=== PATIENT | male | born 1960 | race Caucasian/White ===

== ENCOUNTER 2016-12-04 10:00 | Inpatient (IN) ==
[2016-12-04] MEDS ORDERED: Albuterol 2.5 MG/3 ML NEBULIZER IH ONE ×2 (10:33→13:34)
[2016-12-04] MEDS ORDERED: Albuterol 2.5 MG/3 ML NEBULIZER ONE (10:35)
[2016-12-04] MEDS: Ringers Solution, Lactated 1,000 ML IVC SCH ×2 (10:37→17:00)
--- NOTE | 2016-12-04 12:06 | Anesthesia Evaluation PreOp ---
Date of Encounter: 12/04/16 Time of Encounter: 12:04 - Past History Planned Operation: ERCP/EUS Cardiac History: Denies any Significant Hx Pulmonary History: Smoker (1ppd x 35yrs) HAY STACKER History: Denies Any Significant HX Other Medical History: Denies Any Significant HX, GERD (Pancreatitis), Other ( dx w/ "belly mass" a long time ago no current treatments) Anesthesia History: No Prior Anesthetic Complications, Past Anesthesia ( umbilical hernia repaira x 2,) Alcohol Use: rarely Medications and Allergies Albuterol Sulfate [Ventolin Hfa] 2 puff IH Q4H PRN 12/04/16 [History] Oxycodone HCl/Acetaminophen [Percocet 5-325 mg Tablet] 1 tab PO Q6H PRN [History] 3 Allergy/AdvReac Type Severity Reaction Status Date / Time aspirin [ASA] Allergy Vomiting Verified 12/04/16 10:38 IVP Dye Allergy Vomiting Uncoded 12/04/16 10:27 - Meds/Allergy Pre-op Review Medications Reviewed: Yes Allergies Reviewed: Yes Beta Blockers on Current Med List: No Anesthesia Results - Labs Laboratory Tests 11/19/16 11/19/16 16:09 16:09 WBC 9.5 Hgb 14.4 Hct 40.9 Sodium 139 Potassium 3.9 Chloride 101 Carbon Dioxide 27 BUN 7 L Creatinine 0.76 Est GFR (Non-Af Amer) > 60 Anesthesia Exam O2 Sat Height 1.6 m Height 1.6 m Weight 63.957 kg Weight 63.957 kg O2 Sat by Pulse Oximetry 98 Vital Signs Temp Pulse Resp BP Pulse Ox 97.7 F 88 18 132/85 98 12/04/16 10:33 12/04/16 10:33 12/04/16 10:33 12/04/16 10:33 12/04/16 10:33 Height: 5'3" Weight: 141# BMI =25 NPO (# of Hours): MNOc Pain Scale Used: Numeric (1 - 10) - HEENT Pupil (Motor): Pupils equal, EOMI Mallampati: III Teeth: Edentulous Oral Opening: Greater than 3 - HAY STACKER LOC: Oriented HAY STACKER Motor: Normal RUE, Normal LUE, Normal RLE, Normal LLE, Normal Face HAY STACKER Sensory: Normal: RUE, LUE, RLE, LLE, Face - Cardiac Rhythm: Regular Murmur: None - Pulmonary Breath Sounds: bilateral Clear Respiratory Effort: Symmetrical Anesthesia Assess/Plan ASA Score: 3 Anes Supervising Prov Stmt: Pt seen/evaluated, R&B discussed ,questions answered and consent obtained. Narciso Campos MD
[2016-12-04] MEDS ORDERED: *HR* FentaNYL (PF) 100 MCG/2 ML VIAL ONE (12:22)
[2016-12-04] MEDS ORDERED: *HR* Midazolam HCl 2 MG/2 ML VIAL ONE (12:23)
[2016-12-04] MEDS ORDERED: Indomethacin 50 MG SUPP.RECT RC ONE (12:35)
[2016-12-04] MEDS ORDERED: Ondansetron 4 MG/2 ML VIAL IVP ONE ×2 (13:34→14:25)
[2016-12-04] MEDS ORDERED: *HR* Promethazine 25 MG/ML VIAL IVP PRN (13:34)
[2016-12-04] MEDS ORDERED: *HR* HYDROmorphone (PF) 1 MG/ML SYRINGE IVP PRN (13:34)
[2016-12-04 14:24] LABS: Basophils # 0.1 K/mcL (0.0-0.2); Basophils % 0.7 %; Eosinophils # 0.3 K/mcL (0.0-0.6); Eosinophils % 3.6 %; Hematocrit 40.6 % (37.5-50.1); Hemoglobin 13.7 g/dL (12.9-16.9); Immature Granulocytes % 0.4 % (0-4); Lymphocytes # 1.9 K/mcL (0.6-4.6); Lymphocytes % 19.9 %; Mean Corpuscular HGB Conc 33.7 g/dL (31.6-35.5); Mean Corpuscular Hemoglobin 33.3 pg (28.0-33.3); Mean Corpuscular Volume 98.8 fL (83.0-100.0); Mean Platelet Volume 10.4 fL (9.4-12.4); Monocytes # 0.7 K/mcL (0.0-1.3); Neutrophils # 6.5 K/mcL (1.6-8.9); Platelet Count 280 K/mcL (140-400); Red Blood Count 4.11 M/mcL (4.19-5.50); Red Cell Distribution Width 14.1 % (11.5-14.5); Segmented Neutrophils % 68.4 %
[2016-12-04] MEDS ORDERED: *HR* Phenylephrine 10 MG/ML VIAL IVC ONE (14:25)
[2016-12-04] MEDS ORDERED: *HR* Propofol 200 MG/20 ML VIAL IVP ONE (14:25)
[2016-12-04] MEDS ORDERED: *HR* Succinylcholine 200 MG/10 ML VIAL IVP ONE (14:25)
[2016-12-04] MEDS ORDERED: Lidocaine -MPF 2% 5 ML VIAL INFILT ONE (14:25)
[2016-12-04 14:30] LABS: INR 1.1; Prothrombin Time 12.4 Seconds (9.4-12.1)
[2016-12-04 14:37] LABS: Alanine Aminotransferase 112 Units/L (0-55); Albumin 2.7 g/dL (3.5-5.0); Albumin/Globulin Ratio 0.6 (1.1-2.2); Alkaline Phosphatase 1049 Units/L (38-126); Aspartate Amino Transferase 68 Units/L (5-34); BUN/Creatinine Ratio 9 (6-26); Bilirubin,Total 4.6 mg/dL (0.2-1.2); Blood Urea Nitrogen 7 mg/dL (8-26); Calcium 9.4 mg/dL (8.6-10.8); Carbon Dioxide 26 mEq/L (19-29); Chloride 103 mEq/L (98-109); Globulin 4.3 g/dL (2.4-3.5); Glucose 112 mg/dL (70-99); Osmolality,Calculated 285 (280-300); Potassium 3.8 mEq/L (3.5-4.5); Sodium 138 mEq/L (136-145); eGFR For African Americans > 60 (> 60); eGFR For Non-African Americans > 60 (> 60)
[2016-12-04] MEDS ORDERED: methylPREDNISolone 4 MG TABLET PO ONE (14:44)
--- NOTE | 2016-12-04 14:52 | Anesthesia Evaluation Post Op ---
Date of Encounter: 12/04/16 Time of Encounter: 14:42 - Vital Signs Vital Signs: Vital Signs/O2 Sat, Most Current Temp Pulse Resp BP Pulse Ox 99.0 F 74 16 127/85 94 12/04/16 14:42 12/04/16 14:42 12/04/16 14:42 12/04/16 14:42 12/04/16 14:42 - Lungs Lungs: Clear Ascult./Percussion - Airway Airway: Non-obstructed - Cardiovascular Regular Rate - Mental Status Mental Status: Alert & Oriented, Answers Appropriately - Pain Pain Scale: 0 Pain Scale used: Numeric (1 - 10) - Nausea Vomiting Nausea Vomiting: Not Present - Hydration Hydration: Ice chips, Has not voided - Discharge PostOp Status: Transfer Patient to floor
[2016-12-04] MEDS ORDERED: Ondansetron 4 MG/2 ML VIAL IVP PRN (15:46)
[2016-12-04] MEDS ORDERED: Naloxone 0.4 MG/ML INJ IVP PRN (15:46)
[2016-12-04] MEDS: Famotidine 20 MG/2 ML VIAL IVP SCH (16:44)
[2016-12-04] MEDS: *HR* Morphine 2 MG/ML SYRINGE IVP PRN ×2 (16:45→21:28)
--- NOTE | 2016-12-04 17:02 | Internal Med History&Physical ---
Date of Encounter: 12/04/16 Time of Encounter: 16:00 Assessment and Plan (1) Acute abdominal pain Current visit: Yes Status: Acute Admit the pt into Tele His abdominal pain is due to pancreatic mass will start him on IV and PO analgesics PRN Soft diet today NPO after mid night (2) Obstructive jaundice due to malignant neoplasm Current visit: Yes Status: Acute Reviewed his CT of Abd / Pelvis - Inferior pancreatic head/uncinate process there is a 5 cm mass lesion which abuts the second portion of the duodenum with loss of normal fascial planes. There is adjacent wall thickening with retroperitoneal fat induration and trace free fluid. There is some mildly enlarged adjacent lymph nodes. This is concerning for a primary pancreatic malignancy. Reviewed labs - Significantly elevated LFT's including alk phos CA 19 was also significantly elevated from beginning of this month IR consulted for Percutaneous drainage cath in AM Since he is allergic to contrast, they will prep him in AM with steroids NPO after mid night (3) Pancreatic mass Current visit: Yes Status: Acute (4) Asthma Current visit: Yes Status: Chronic stable not in exacerbation on Albuterol INH Qualifiers: Asthma severity: mild intermittent Qualified Code(s): J45.20 - Mild intermittent asthma, uncomplicated (5) Tobacco dependence Current visit: Yes Status: Chronic Counseled to quit smoking on nicotine patch (6) DVT prophylaxis Current visit: Yes Status: Acute on SCD's Internal Medicine - H&P: HPI Chief complaint: Abdominal pain Admitted From: Intrahospital Transfer Plans for Post Hospital Care: Home History of present illness: Mr. Montana is a 55 year old male with known PMH of Asthma, chronic tobacco dependence, who recently diagnosed with pancreatic mass and obstructive jaundice has scheduled for ERCP today. Apparently Dr. Ibarra unable to advance the scope/ canula due to mass. So GI requested me to admit the pt for further care for his worsening intractable abdominal pain, also possible Percutaneous cath by IR in AM. Pt was seen and examined at bed side on the floor. he is alert, awkae and O x3. Denied any CP / SOB. Does c/o RUQ and Periubelical abdominal pain 7/10 in severity. No nausea / vomiting. Past Med Surg Social Fam HX - Past Medical History Medical history: asthma, other (Pancreatic mass) Psychiatric history: no psych history - Past Surgical History Surgical History: no surgical history - Social History Smoking Status: Current every day smoker Packs per day: 1 Smokeless Tobacco Status: No Alcohol use: rarely Drug use: none - Family History Mother Living Status: Still Living Hx Family Cardiac Disorders: Yes Hx Family Endocrine Disorder: Yes (DM) - Additional Family History Additional family history: His borther and sister both have cancer, but does not know what cancer it is Internal Medicine - H&P: Meds Albuterol Sulfate [Ventolin Hfa] 2 puff IH Q4H PRN 12/04/16 [History] Oxycodone HCl/Acetaminophen [Percocet 5-325 mg Tablet] 1 tab PO Q6H PRN [History] 3 Allergy/AdvReac Type Severity Reaction Status Date / Time aspirin [ASA] Allergy Vomiting Verified 12/04/16 10:38 IVP Dye Allergy Vomiting Uncoded 12/04/16 10:27 All Systems PM: A 10-system review of systems was performed and is negative for pertinent findings except as documented above in the HPI. Review of systems: All the systems are reviewed everything is benign except the systems and symptoms I mentioned in the history of present illness - Constitutional Vitals: Temp Pulse Resp BP Pulse Ox 99.0 F 74 16 127/85 94 12/04/16 14:42 12/04/16 14:42 12/04/16 14:42 12/04/16 14:42 12/04/16 16:02 General appearance: Present: A&O X 3, no acute distress, answers questions appropriately - Head Head exam: Present: atraumatic, normal inspection - Eye Eye exam: Present: PERRL, scleral icterus - Respiratory Respiratory exam: Present: CTAB. Absent: accessory muscle use, rales, rhonchi, wheezes - Cardiovascular Cardiovascular exam: Present: RRR, +S1, +S2. Absent: diastolic murmur, gallop, rubs, systolic murmur - GI/Abdominal GI/Abdominal exam: Present: distended (mild), normal bowel sounds, soft, tenderness (moderate RUQ tenderness). Absent: rebound, rigid - Extremities Exam Extremities exam: Absent: calf tenderness, pedal edema, tenderness - Back Exam Back exam: Absent: CVA tenderness (L), CVA tenderness (R) - Neurological Exam Neurological exam: Present: alert, oriented X3 - Psychiatric Psychiatric exam: Present: normal affect, normal mood Internal Med - H&P Results - Labs CBC & Chem 7: 12/04/16 14:14 12/04/16 14:14 Labs: Short CBC 12/04/16 Range/Units 14:14 WBC 9.4 (4.3-11.1) K/mcL Hgb 13.7 (12.9-16.9) g/dL Hct 40.6 (37.5-50.1) % Plt Count 280 (140-400) K/mcL Neutrophils # 6.5 (1.6-8.9) K/mcL BMP 12/04/16 14:14 Sodium 138 Potassium 3.8 Chloride 103 Carbon Dioxide 26 BUN 7 L Creatinine 0.81 Glucose 112 H Calcium 9.4 Liver Function 12/04/16 Range/Units 14:14 Total Bilirubin 4.6 H (0.2-1.2) mg/dL AST 68 H (5-34) Units/L ALT 112 H (0-55) Units/L Alkaline Phosphatase 1049 H (38-126) Units/L Albumin 2.7 L (3.5-5.0) g/dL - Impressions ITS Impressions Cath/Invasive Procedure 12/04/16 00:00 IMPRESSION: Please refer to the procedure report for further details. D/ / Asad Rodriges MD / Asad Rodriges MD Interpreting Provider: Asad Rodriges MD Abdomen/Pelvis CT 12/04/16 14:12 IMPRESSION: 1. At the inferior pancreatic head/uncinate process there is a 5 cm mass lesion which abuts the second portion of the duodenum with loss of normal fascial planes. There is adjacent wall thickening with retroperitoneal fat induration and trace free fluid. There is some mildly enlarged adjacent lymph nodes. This is concerning for a primary pancreatic malignancy. There is possible infiltration of the duodenum though there is no obstruction. No evidence of vascular encasement on this noncontrasted exam. 2. Intra and extrahepatic biliary dilatation. 3. Mild gallbladder wall thickening. There is mild adjacent fat induration suggesting inflammation which could relate to acute cholecystitis versus reactive changes due to the primary pancreatic mass. The findings were sent to the Radiology Results Communication Center at 4:18 pm on 12/04/2016to be communicated to a licensed caregiver. D/ / 12/04/2016 16:25:58 Eliecer Lackey MD / Jess Martínez Interpreting Provider: Eliecer Lackey MD
[2016-12-04] MEDS: Nicotine 21 MG PATCH.TD24 TD SCH (18:18)
[2016-12-05] MEDS: *HR* Morphine 2 MG/ML SYRINGE IVP PRN ×4 (01:37→19:47)
[2016-12-05] MEDS: methylPREDNISolone 4 MG TABLET PO SCH ×2 (01:57→12:20)
[2016-12-05] MEDS ORDERED: methylPREDNISolone 4 MG TABLET PO SCH (02:00)
[2016-12-05] MEDS: *HR* Promethazine 25 MG/ML VIAL IVP PRN ×2 (02:07→15:01)
[2016-12-05] MEDS: *HR* OxyCODONE Immed Rel 5 MG TABLET PO PRN ×2 (02:07→17:20)
[2016-12-05] MEDS: Famotidine 20 MG/2 ML VIAL IVP SCH ×2 (06:08→17:20)
[2016-12-05 06:57] LABS: Basophils % 0.3 %; Hematocrit 39.6 % (37.5-50.1); Hemoglobin 13.6 g/dL (12.9-16.9); Immature Granulocytes % 0.7 % (0-4); Immature Platelets 7.7 % (1.1-6.1); Lymphocytes # 1.2 K/mcL (0.6-4.6); Lymphocytes % 11.2 %; Mean Corpuscular HGB Conc 34.3 g/dL (31.6-35.5); Mean Corpuscular Hemoglobin 33.7 pg (28.0-33.3); Mean Corpuscular Volume 98.3 fL (83.0-100.0); Mean Platelet Volume 10.7 fL (9.4-12.4); Monocytes # 0.3 K/mcL (0.0-1.3); Monocytes % 2.5 %; Neutrophils # 8.8 K/mcL (1.6-8.9); Platelet Count 292 K/mcL (140-400); Red Blood Count 4.03 M/mcL (4.19-5.50); Red Cell Distribution Width 13.9 % (11.5-14.5); Segmented Neutrophils % 85.3 %
[2016-12-05 07:01] LABS: INR 1.1; Prothrombin Time 12.1 Seconds (9.4-12.1)
[2016-12-05 07:03] LABS: Activated Partial Thrombo Time 32.4 Seconds (26.0-36.0)
[2016-12-05 07:15] LABS: BUN/Creatinine Ratio 15 (6-26); Blood Urea Nitrogen 11 mg/dL (8-26); Carbon Dioxide 24 mEq/L (19-29); Chloride 105 mEq/L (98-109); Potassium 4.1 mEq/L (3.5-4.5); Sodium 139 mEq/L (136-145); eGFR For African Americans > 60 (> 60)
[2016-12-05 07:16] LABS: Alanine Aminotransferase 85 Units/L (0-55); Albumin 2.7 g/dL (3.5-5.0); Albumin/Globulin Ratio 0.6 (1.1-2.2); Alkaline Phosphatase 946 Units/L (38-126); Aspartate Amino Transferase 41 Units/L (5-34); Bilirubin,Total 3.3 mg/dL (0.2-1.2); Calcium 9.7 mg/dL (8.6-10.8); Globulin 4.4 g/dL (2.4-3.5); Glucose 137 mg/dL (70-99); Magnesium 1.7 mg/dL (1.6-2.6); Osmolality,Calculated 290 (280-300); Phosphorous 2.6 mg/dL (2.3-4.7); Total Protein 7.1 g/dL (6.0-8.3); eGFR For Non-African Americans > 60 (> 60)
[2016-12-05] MEDS: Nicotine 21 MG PATCH.TD24 TD SCH ×2 (09:33→17:25)
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
[2016-12-05] MEDS ORDERED: 0.9 % Sodium Chloride 500 ML ONE (12:59)
[2016-12-05] MEDS ORDERED: Piperacillin/Tazobactam 3.375 GM in D5% in Water (Mini-Bag+) 100 ML IVPB ONE (13:19)
[2016-12-05] MEDS ORDERED: 0.9 % Sodium Chloride 1,000 ML ONE (13:22)
[2016-12-05] MEDS: *HR* FentaNYL (PF) 100 MCG/2 ML VIAL IVP PRN ×7 (13:52→14:34)
[2016-12-05] MEDS: *HR* Midazolam HCl 2 MG/2 ML VIAL IVP PRN ×4 (13:52→14:24)
--- NOTE | 2016-12-05 14:13 | Internal Med Progress Note ---
Date of Encounter: 12/05/16 Time of Encounter: 09:00 - Assessment and plan (1) Acute abdominal pain Current Visit: Yes Status: Acute Assessment and plan: Due to obstructive jaundice and pancreatic mass. Continue supportive care. Pain control with narcotic medications as needed. (2) Obstructive jaundice due to malignant neoplasm Current Visit: Yes Status: Acute Assessment and plan: Liver enzymes improving. Discussed with gastroenterology. Planned percutaneous cholecystostomy tube insertion today. (3) Pancreatic mass Current Visit: Yes Status: Acute Assessment and plan: Follow-up outpatient with oncology and GI for further management (4) Asthma Current Visit: Yes Status: Chronic Assessment and plan: Not in acute exacerbation. Will use bronchodilators as needed Qualifiers: Asthma severity: mild intermittent Qualified Code(s): J45.20 - Mild intermittent asthma, uncomplicated (5) Tobacco dependence Current Visit: Yes Status: Chronic Assessment and plan: On nicotine patch (6) DVT prophylaxis Current Visit: Yes Status: Acute Assessment and plan: Continue SCDs. Patient is ambulating well - Subjective Interval history: Patient doing better today. Abdominal pain is improving. Denies any nausea or vomiting. His been nothing by mouth for planned procedure later today. - Constitutional Vitals: Temp Pulse Resp BP Pulse Ox 98.4 F 89 16 152/100 98 12/05/16 11:02 12/05/16 14:08 12/05/16 14:08 12/05/16 14:08 12/05/16 14:08 General appearance: Present: A&O X 3, no acute distress, answers questions appropriately - Eye Eye exam: Present: sclera anicteric - Neck Neck exam general surgery: Present: supple, trachea midline. Absent: lymphadenopathy - Respiratory Respiratory exam: Present: CTAB. Absent: accessory muscle use, rales, rhonchi, wheezes - Cardiovascular Cardiovascular exam: Present: RRR, +S1, +S2. Absent: diastolic murmur, gallop, rubs, systolic murmur - GI/Abdominal GI/Abdominal exam: Present: normal bowel sounds, soft, no peritoneal signs. Absent: distended, tenderness - Extremities Exam Extremities exam: Present: warm, radial pulses palpable and symmetrical. Absent : calf tenderness, cyanotic, pedal edema - Neurological Exam Neurological exam: Present: CN II-XII intact, oriented X3, no focal deficits. Absent: facial droop, speech deficit - Skin Skin exam: Present: dry, intact Internal Medicine: Result - Labs CBC & Chem 7: 12/05/16 06:23 12/05/16 06:23 Labs: Short CBC 12/04/16 12/05/16 Range/Units 14:14 06:23 WBC 9.4 10.3 (4.3-11.1) K/mcL Hgb 13.7 13.6 (12.9-16.9) g/dL Hct 40.6 39.6 (37.5-50.1) % Plt Count 280 292 (140-400) K/mcL Neutrophils # 6.5 8.8 (1.6-8.9) K/mcL BMP 12/04/16 12/05/16 14:14 06:23 Sodium 138 139 Potassium 3.8 4.1 Chloride 103 105 Carbon Dioxide 26 24 BUN 7 L 11 Creatinine 0.81 0.72 Glucose 112 H 137 H Calcium 9.4 9.7 Liver Function 12/04/16 12/05/16 Range/Units 14:14 06:23 Total Bilirubin 4.6 H 3.3 H (0.2-1.2) mg/dL AST 68 H 41 H (5-34) Units/L ALT 112 H 85 H (0-55) Units/L Alkaline Phosphatase 1049 H 946 H (38-126) Units/L Albumin 2.7 L 2.7 L (3.5-5.0) g/dL - ABG Interpretation ABG results: PT/INR, D-dimer PT 12.1 Seconds (9.4-12.1) 12/05/16 06:23 - Impressions Impressions Abdomen/Pelvis CT 12/04/16 14:12 IMPRESSION: 1. At the inferior pancreatic head/uncinate process there is a 5 cm mass lesion which abuts the second portion of the duodenum with loss of normal fascial planes. There is adjacent wall thickening with retroperitoneal fat induration and trace free fluid. There is some mildly enlarged adjacent lymph nodes. This is concerning for a primary pancreatic malignancy. There is possible infiltration of the duodenum though there is no obstruction. No evidence of vascular encasement on this noncontrasted exam. 2. Intra and extrahepatic biliary dilatation. 3. Mild gallbladder wall thickening. There is mild adjacent fat induration suggesting inflammation which could relate to acute cholecystitis versus reactive changes due to the primary pancreatic mass. The findings were sent to the Radiology Results Communication Center at 4:18 pm on 12/04/2016to be communicated to a licensed caregiver. D/ / 12/04/2016 16:25:58 Eliecer Lackey MD / Jess Martínze Interpreting Provider: Eliecer Lackey MD Consult Discharge Plan - Plan Referrals: Alecia Espinoza, PETROLEUM PLANT OPERATOR [Primary Care Provider] -
--- NOTE | 2016-12-05 14:45 | IR Procedure Note ---
Date of procedure: 12/05/16 Consent Obtained: Written consent Timeout: Correct patient and procedure verified, Time out performed, Skin prep completed Local anesthetic: Lidocaine 1% Indications: Obstructive jaundice Procedure Performed: PTC/PBD Results/Findings: Right 12F int/ext biliary drainage catheter placement Complications: None; Tolerated procedure well (Monitor on floor)
[2016-12-05] MEDS: *HR* OxyCODONE/APAP 10/325 TABLET PO PRN (22:09)
[2016-12-06] MEDS: *HR* Morphine 2 MG/ML SYRINGE IVP PRN ×4 (00:21→23:56)
[2016-12-06] MEDS: Famotidine 20 MG/2 ML VIAL IVP SCH ×2 (06:10→18:04)
[2016-12-06] MEDS: *HR* OxyCODONE/APAP 10/325 TABLET PO PRN ×3 (06:10→20:45)
[2016-12-06 08:41] LABS: Albumin 2.7 g/dL (3.5-5.0); Albumin/Globulin Ratio 0.6 (1.1-2.2); Bilirubin,Direct 1.5 mg/dL (0.0-0.5); Bilirubin,Indirect 0.7 mg/dL (0.0-1.2); Bilirubin,Total 2.2 mg/dL (0.2-1.2); Globulin 4.3 g/dL (2.4-3.5)
[2016-12-06] MEDS: Nicotine 21 MG PATCH.TD24 TD SCH (08:53)
--- NOTE | 2016-12-06 16:00 | Internal Med Progress Note ---
Date of Encounter: 12/06/16 Time of Encounter: 11:00 - Assessment and plan (1) Acute abdominal pain Current Visit: Yes Status: Acute Assessment and plan: Due to pancreatic tumor and obstructive jaundice. Status post PTC placement. Doing well overall. Continue supportive care. Pain control. (2) Obstructive jaundice due to malignant neoplasm Current Visit: Yes Status: Acute Assessment and plan: Plan for repeat ERCP tomorrow per GI recommendations. Keep nothing by mouth after midnight. Liver enzymes trending down. (3) Pancreatic mass Current Visit: Yes Status: Acute Assessment and plan: Follow-up outpatient with GI and oncology. (4) Asthma Current Visit: Yes Status: Chronic Assessment and plan: Continue bronchodilators as needed Qualifiers: Asthma severity: mild intermittent Qualified Code(s): J45.20 - Mild intermittent asthma, uncomplicated (5) Tobacco dependence Current Visit: Yes Status: Chronic Assessment and plan: On nicotine patch. (6) DVT prophylaxis Current Visit: Yes Status: Acute Assessment and plan: early ambulation. Continue SCDs - Subjective Interval history: Patient complaints of abdominal discomfort at site of catheter insertion and in the epigastric region. This is a however better than the pain when he came in. No fever or chills reported. No nausea or vomiting. Tolerating diet well. - Constitutional Vitals: Temp Pulse Resp BP Pulse Ox 98.1 F 89 15 128/85 95 12/06/16 14:47 12/06/16 14:47 12/06/16 14:47 12/06/16 14:47 12/06/16 14:47 General appearance: Present: A&O X 3, no acute distress, answers questions appropriately - Neck Neck exam general surgery: Present: supple, trachea midline. Absent: lymphadenopathy - Respiratory Respiratory exam: Present: CTAB. Absent: accessory muscle use, rales, rhonchi, wheezes - Cardiovascular Cardiovascular exam: Present: RRR, +S1, +S2. Absent: diastolic murmur, gallop, rubs, systolic murmur - GI/Abdominal GI/Abdominal exam: Present: normal bowel sounds, soft, no peritoneal signs. Absent: distended, tenderness Additional comments: cholecystostomy catheter in place. Epigastric tenderness present - Extremities Exam Extremities exam: Present: warm, radial pulses palpable and symmetrical. Absent : calf tenderness, cyanotic, pedal edema - Neurological Exam Neurological exam: Present: CN II-XII intact, oriented X3, no focal deficits. Absent: facial droop, speech deficit Internal Medicine: Result - Labs CBC & Chem 7: 12/05/16 06:23 12/05/16 06:23 Labs: Liver Function 12/06/16 Range/Units 08:00 Total Bilirubin 2.2 H (0.2-1.2) mg/dL Direct Bilirubin 1.5 H (0.0-0.5) mg/dL AST 35 H (5-34) Units/L ALT 68 H (0-55) Units/L Alkaline Phosphatase 746 H (38-126) Units/L Albumin 2.7 L (3.5-5.0) g/dL - ABG Interpretation ABG results: PT/INR, D-dimer PT 12.1 Seconds (9.4-12.1) 12/05/16 06:23 - Impressions Impressions Catheter Placement 12/05/16 00:00 IMPRESSION: 1. Occlusion of the distal common bile duct with intrahepatic and extrahepatic biliary ductal dilatation. This most likely is secondary to a mass lesion within the ampulla or head and pancreas. 2. Right internal/external biliary drainage catheter placement. Plan: External drainage until his jaundice resolves and liver function studies improve. The tube could then be capped to allow for internal drainage. D/ / Victor Manuel Joya MD / Victor Manuel Joya MD Interpreting Provider: Victor Manuel Joya MD Abdomen MRI 12/05/16 19:04 IMPRESSION: 1. Markedly limited evaluation secondary to motion artifact. However, as mentioned on the CT report, there is a heterogeneous mass within the pancreatic head and uncinate process measuring 5.3 x 4.7 cm, which is hypovascular to normal pancreatic parenchyma and concerning for neoplasm. Adjacent prominent lymph nodes, which were better visualized on CT, could be metastatic. Given that there is reactive inflammation of the adjacent duodenum, differential diagnosis would include groove pancreatitis. Please correlate with ERCP results and lab values. 2. Although the gallbladder is not well distended, there is extensive pericholecystic edema with mild gallbladder wall thickening. Acute cholecystitis cannot be excluded. Suggest for further evaluation. D/ / 12/06/2016 07:37:15 Gordo Gr MD / earnold Interpreting Provider: Gordo Gr MD Consult Discharge Plan - Plan Referrals: Alecia Espinoza, REVENUE COORDINATOR [Primary Care Provider] -
[2016-12-06] MEDS ORDERED: 0.9 % Sodium Chloride 1,000 ML ONE (17:57)
[2016-12-06] MEDS: GuaiFENesin Liq 200 MG/10 ML UDC PO PRN ×2 (18:04→23:54)
[2016-12-06] MEDS: 0.9 % Sodium Chloride 1,000 ML IVC SCH (20:48)
[2016-12-07] MEDS: *HR* Morphine 2 MG/ML SYRINGE IVP PRN ×4 (04:03→18:17)
[2016-12-07 04:46] LABS: Basophils % 0.4 %; Eosinophils # 0.2 K/mcL (0.0-0.6); Eosinophils % 1.8 %; Hemoglobin 13.7 g/dL (12.9-16.9); Immature Granulocytes % 0.2 % (0-4); Lymphocytes # 3.1 K/mcL (0.6-4.6); Lymphocytes % 31.9 %; Mean Corpuscular HGB Conc 33.4 g/dL (31.6-35.5); Mean Corpuscular Hemoglobin 33.8 pg (28.0-33.3); Mean Corpuscular Volume 101.2 fL (83.0-100.0); Mean Platelet Volume 10.6 fL (9.4-12.4); Monocytes # 0.7 K/mcL (0.0-1.3); Monocytes % 7.1 %; Neutrophils # 5.7 K/mcL (1.6-8.9); Platelet Count 268 K/mcL (140-400); Red Blood Count 4.05 M/mcL (4.19-5.50); Red Cell Distribution Width 13.9 % (11.5-14.5); Segmented Neutrophils % 58.6 %
[2016-12-07 05:02] LABS: Alanine Aminotransferase 53 Units/L (0-55); Albumin 2.6 g/dL (3.5-5.0); Albumin/Globulin Ratio 0.7 (1.1-2.2); Alkaline Phosphatase 653 Units/L (38-126); Amylase 141 Units/L (25-125); Aspartate Amino Transferase 26 Units/L (5-34); BUN/Creatinine Ratio 19 (6-26); Bilirubin,Total 1.9 mg/dL (0.2-1.2); Blood Urea Nitrogen 14 mg/dL (8-26); Carbon Dioxide 22 mEq/L (19-29); Chloride 105 mEq/L (98-109); Glucose 90 mg/dL (70-99); Lipase 193 Units/L (8-78); Osmolality,Calculated 286 (280-300); Potassium 3.8 mEq/L (3.5-4.5); Sodium 138 mEq/L (136-145); Total Protein 6.6 g/dL (6.0-8.3); eGFR For African Americans > 60 (> 60); eGFR For Non-African Americans > 60 (> 60)
[2016-12-07] MEDS: *HR* OxyCODONE/APAP 10/325 TABLET PO PRN ×3 (06:01→20:57)
[2016-12-07] MEDS: Famotidine 20 MG/2 ML VIAL IVP SCH ×2 (07:28→18:18)
[2016-12-07] MEDS: 0.9 % Sodium Chloride 1,000 ML IVC SCH ×2 (07:28→20:58)
[2016-12-07] MEDS: Nicotine 21 MG PATCH.TD24 TD SCH (09:08)
--- NOTE | 2016-12-07 14:08 | Internal Med Progress Note ---
Date of Encounter: 12/07/16 Time of Encounter: 09:00 - Assessment and plan (1) Acute abdominal pain Current Visit: Yes Status: Acute Assessment and plan: Due to pancreatic cancer and obstructive jaundice. Status post percutaneous cholecystostomy. Planned ERCP and biliary stent placement for today. Continue supportive care and pain control. (2) Obstructive jaundice due to malignant neoplasm Current Visit: Yes Status: Acute Assessment and plan: Continue current management. Alkaline phosphatase levels are improving. Discussed with GI. At this time recommend continue to monitor patient's condition while we await pathology as patient may need referral or transfer to [facility] based on his pathology results. (3) Pancreatic mass Current Visit: Yes Status: Acute Assessment and plan: Likely malignancy. Follow GI recommendations as above (4) Asthma Current Visit: Yes Status: Chronic Assessment and plan: No acute exacerbation. Bronchodilators as needed Qualifiers: Asthma severity: mild intermittent Qualified Code(s): J45.20 - Mild intermittent asthma, uncomplicated (5) Tobacco dependence Current Visit: Yes Status: Chronic Assessment and plan: With nicotine patch (6) DVT prophylaxis Current Visit: Yes Status: Acute Assessment and plan: With subcutaneous Lovenox and ambulation - Subjective Interval history: Patient complains of right upper quadrant and epigastric abdominal pain. Improved since admission. No nausea or vomiting. No fever or chills reported. Has been nothing by mouth since midnight for planned ERCP later today. - Constitutional Vitals: Temp Pulse Resp BP Pulse Ox 97.8 F 79 16 125/81 93 12/07/16 10:26 12/07/16 10:26 12/07/16 10:26 12/07/16 10:26 12/07/16 10:26 General appearance: Present: A&O X 3, no acute distress, answers questions appropriately - Eye Eye exam: Present: scleral icterus - Neck Neck exam general surgery: Present: supple, trachea midline. Absent: lymphadenopathy - Respiratory Respiratory exam: Present: CTAB. Absent: accessory muscle use, rales, rhonchi, wheezes - Cardiovascular Cardiovascular exam: Present: RRR, +S1, +S2. Absent: diastolic murmur, gallop, rubs, systolic murmur - GI/Abdominal GI/Abdominal exam: Present: normal bowel sounds, soft, tenderness (Epigastric and right upper quadrant), no peritoneal signs. Absent: distended Additional comments: Right percutaneous cholecystostomy tube in place - Extremities Exam Extremities exam: Present: warm, radial pulses palpable and symmetrical. Absent : calf tenderness, cyanotic, pedal edema - Skin Skin exam: Present: dry, intact Additional comments: Jaundice Internal Medicine: Result - Labs CBC & Chem 7: 12/07/16 04:00 12/07/16 04:00 Labs: Short CBC 12/07/16 Range/Units 04:00 WBC 9.6 (4.3-11.1) K/mcL Hgb 13.7 (12.9-16.9) g/dL Hct 41.0 (37.5-50.1) % Plt Count 268 (140-400) K/mcL Neutrophils # 5.7 (1.6-8.9) K/mcL BMP 12/07/16 04:00 Sodium 138 Potassium 3.8 Chloride 105 Carbon Dioxide 22 BUN 14 Creatinine 0.74 Glucose 90 Calcium 9.0 Liver Function 12/07/16 Range/Units 04:00 Total Bilirubin 1.9 H (0.2-1.2) mg/dL AST 26 (5-34) Units/L ALT 53 (0-55) Units/L Alkaline Phosphatase 653 H (38-126) Units/L Albumin 2.6 L (3.5-5.0) g/dL - ABG Interpretation ABG results: PT/INR, D-dimer PT 12.1 Seconds (9.4-12.1) 12/05/16 06:23 - Impressions Impressions Abdomen MRI 12/05/16 19:04 IMPRESSION: 1. Markedly limited evaluation secondary to motion artifact. However as mentioned on the CT report, there is a heterogeneous mass within the pancreatic head and uncinate process measuring 5.3 x 4.7 cm which is hypovascular to normal pancreatic parenchyma and concerning for neoplasm. Adjacent prominent lymph nodes which were better visualized on CT could be metastatic. Given that there is reactive inflammation of the adjacent duodenum, differential diagnosis would include groove pancreatitis. Please correlate with ERCP results and lab values. 2. Although the gallbladder is not well distended, there is extensive pericholecystic edema with mild gallbladder wall thickening. Acute cholecystitis cannot be excluded. Suggest ultrasound for further evaluation. D/ / 12/06/2016 07:37:15 Gordo Gr MD / earnold Interpreting Provider: Gordo Gr MD Consult Discharge Plan - Plan Referrals: Alecia Espinoza CNP [Primary Care Provider] -
[2016-12-07] MEDS: *HR* Enoxaparin 40 MG/0.4 ML SYRINGE SQ SCH (18:18)
[2016-12-08] MEDS: *HR* Morphine 2 MG/ML SYRINGE IVP PRN ×5 (00:24→20:32)
[2016-12-08] MEDS: *HR* OxyCODONE/APAP 10/325 TABLET PO PRN ×4 (03:52→23:42)
[2016-12-08] MEDS: Famotidine 20 MG/2 ML VIAL IVP SCH ×2 (05:21→15:51)
[2016-12-08] MEDS: Nicotine 21 MG PATCH.TD24 TD SCH (09:08)
[2016-12-08] MEDS: *HR* Enoxaparin 40 MG/0.4 ML SYRINGE SQ SCH (15:50)
--- NOTE | 2016-12-08 17:43 | Internal Med Progress Note ---
Date of Encounter: 12/08/16 Time of Encounter: 12:00 - Assessment and plan (1) Acute abdominal pain Current Visit: Yes Status: Acute Assessment and plan: -Secondary to pancreatic cancer and obstructive jaundice. -Status post percutaneous cholecystostomy. -Planned ERCP and biliary stent placement on 12/07/2016. -Continue supportive care and pain control. -Awaiting biopsies. (2) Obstructive jaundice due to malignant neoplasm Current Visit: Yes Status: Acute Assessment and plan: -Awaiting pathology results; may need referral or transfer to [facility] based on his pathology results. (3) Pancreatic mass Current Visit: Yes Status: Acute Assessment and plan: -Suspected malignancy. -GI following and recommendations as above. (4) Tobacco dependence Current Visit: Yes Status: Chronic Assessment and plan: -Nicotine replacement offered (5) DVT prophylaxis Current Visit: Yes Status: Acute Assessment and plan: -Subcutaneous Lovenox - Subjective Interval history: Patient with no issues or complaints this morning and requesting to go home soon. - Constitutional Vitals: Temp Pulse Resp BP Pulse Ox 97.3 F L 91 16 127/82 94 12/08/16 15:51 12/08/16 15:51 12/08/16 15:51 12/08/16 15:51 12/08/16 15:51 General appearance: Present: A&O X 3, no acute distress, answers questions appropriately - Respiratory Respiratory exam: Present: CTAB. Absent: accessory muscle use, rales, rhonchi, wheezes - Cardiovascular Cardiovascular exam: Present: RRR, +S1, +S2. Absent: diastolic murmur, gallop, rubs, systolic murmur - GI/Abdominal GI/Abdominal exam: Present: normal bowel sounds, soft. Absent: distended, guarding Internal Medicine: Result - Labs CBC & Chem 7: 12/07/16 04:00 12/07/16 04:00 - ABG Interpretation ABG results: PT/INR, D-dimer PT 12.1 Seconds (9.4-12.1) 12/05/16 06:23 Consult Discharge Plan - Plan Referrals: Alecia Espinoza, DRESS FINISHER [Primary Care Provider] -
[2016-12-08] MEDS: Ringers Solution, Lactated 1,000 ML IVC SCH ×4 (19:45→19:48)
[2016-12-08] MEDS: 0.9 % Sodium Chloride 1,000 ML IVC SCH (19:48)
[2016-12-09] MEDS: *HR* Morphine 2 MG/ML SYRINGE IVP PRN ×4 (03:34→17:13)
[2016-12-09] MEDS: *HR* OxyCODONE/APAP 10/325 TABLET PO PRN (06:04)
[2016-12-09] MEDS: Famotidine 20 MG/2 ML VIAL IVP SCH ×2 (06:04→17:13)
[2016-12-09] MEDS: Nicotine 21 MG PATCH.TD24 TD SCH (07:43)
[2016-12-09 10:05] LABS: Basophils # 0.1 K/mcL (0.0-0.2); Basophils % 0.6 %; Eosinophils # 0.4 K/mcL (0.0-0.6); Eosinophils % 3.3 %; Hematocrit 47.7 % (37.5-50.1); Immature Granulocytes % 0.2 % (0-4); Lymphocytes # 4.1 K/mcL (0.6-4.6); Lymphocytes % 32.4 %; Mean Corpuscular HGB Conc 32.9 g/dL (31.6-35.5); Mean Corpuscular Hemoglobin 33.3 pg (28.0-33.3); Mean Corpuscular Volume 101.3 fL (83.0-100.0); Mean Platelet Volume 10.4 fL (9.4-12.4); Monocytes # 1.2 K/mcL (0.0-1.3); Monocytes % 9.5 %; Neutrophils # 6.8 K/mcL (1.6-8.9); Platelet Count 337 K/mcL (140-400); Red Blood Count 4.71 M/mcL (4.19-5.50); Red Cell Distribution Width 12.9 % (11.5-14.5)
[2016-12-09 10:31] LABS: Hemoglobin 15.7 g/dL (12.9-16.9)
[2016-12-09 10:43] LABS: BUN/Creatinine Ratio 14 (6-26); Blood Urea Nitrogen 12 mg/dL (8-26); Calcium 10.1 mg/dL (8.6-10.8); Carbon Dioxide 26 mEq/L (19-29); Chloride 101 mEq/L (98-109); Glucose 106 mg/dL (70-99); Osmolality,Calculated 288 (280-300); Potassium 3.4 mEq/L (3.5-4.5); Sodium 139 mEq/L (136-145); eGFR For African Americans > 60 (> 60); eGFR For Non-African Americans > 60 (> 60)
--- NOTE | 2016-12-09 11:31 | Anesthesia Evaluation PreOp ---
Date of Encounter: 12/09/16 Time of Encounter: 11:29 - Past History Planned Operation: EUS/ERCP Cardiac History: Denies any Significant Hx Pulmonary History: Smoker (35 years) SOCIAL SERVICE TECHNICIAN History: Denies Any Significant HX Other Medical History: GERD, Other (pancreatitis) Anesthesia History: No Prior Anesthetic Complications, Past Anesthesia Alcohol Use: rarely Drug use: none Medications and Allergies Albuterol Sulfate [Ventolin Hfa] 2 puff IH Q4H PRN 12/04/16 [History] Oxycodone HCl/Acetaminophen [Percocet 5-325 mg Tablet] 1 tab PO Q6H PRN [History] 3 Allergy/AdvReac Type Severity Reaction Status Date / Time aspirin [ASA] Allergy Vomiting Verified 12/04/16 10:38 IVP Dye Allergy Vomiting Uncoded 12/04/16 10:27 - Meds/Allergy Pre-op Review Medications Reviewed: Yes Allergies Reviewed: Yes Beta Blockers on Current Med List: No Anesthesia Results - Labs 12/09/16 09:55 12/09/16 09:55 - Imaging EKG: report reviewed (12/16/2012 Sinus rhythm Incomplete RBBB Borderline ECG) Additional studies: 12/15/2012 Echo Impressions: * LVEF 60-65% * Normal left ventricular size and systolic function. * Mild diastolic dysfunction of the left ventricle. * Normal right ventricular size and function. * No significant valvular dysfunction. * There is no pulmonary hypertension. Anesthesia Exam Vital Signs/O2 Sat/Glucose, Most Recent Temp Pulse Resp BP Pulse Ox 98.0 F 72 18 113/77 95 12/09/16 11:00 12/09/16 11:00 12/09/16 11:00 12/09/16 11:00 12/09/16 11:00 Blood Glucose* 100 Height: 5'3''/1.6 m Weight: 139 lbs/63.4 kg NPO (# of Hours): 8 Pain Scale: 0 Pain Scale Used: Numeric (1 - 10) - HEENT Pupil (Motor): EOMI Mallampati: III Teeth: Edentulous Oral Opening: Greater than 3 - SOCIAL SERVICE TECHNICIAN LOC: Oriented SOCIAL SERVICE TECHNICIAN Motor: Normal RUE, Normal LUE, Normal RLE, Normal LLE, Normal Face SOCIAL SERVICE TECHNICIAN Sensory: Normal: RUE, LUE, RLE, LLE, Face - Cardiac Rhythm: Regular Murmur: None - Pulmonary Breath Sounds: bilateral Clear Respiratory Effort: Symmetrical Anesthesia Assess/Plan ASA Score: 3 Modified [place] Scale for Level of Consciousness: Cooperative, oriented, and tranquil Anesthetic Plan: General Monitoring Plan: Standard Monitors Recovery Plan: PACU
[2016-12-09] MEDS: GuaiFENesin Liq 200 MG/10 ML UDC PO PRN (12:07)
[2016-12-09] MEDS ORDERED: *HR* FentaNYL (PF) 100 MCG/2 ML VIAL ONE ×2 (12:41→14:19)
[2016-12-09] MEDS ORDERED: Albuterol 2.5 MG/3 ML NEBULIZER IH ONE (12:44)
[2016-12-09] MEDS ORDERED: Albuterol 2.5 MG/3 ML NEBULIZER ONE (12:44)
[2016-12-09] MEDS ORDERED: Indomethacin 50 MG SUPP.RECT RC ONE (13:00)
[2016-12-09] MEDS ORDERED: Ringers Solution, Lactated 1,000 ML IVC SCH (13:00)
[2016-12-09] MEDS ORDERED: *HR* Promethazine 25 MG/ML VIAL IVP PRN (13:06)
[2016-12-09] MEDS ORDERED: *HR* HYDROmorphone (PF) 1 MG/ML SYRINGE IVP PRN (13:06)
--- NOTE | 2016-12-09 16:00 | Anesthesia Evaluation Post Op ---
Date of Encounter: 12/09/16 Time of Encounter: 16:00 - Vital Signs Vital Signs: Vital Signs/O2 Sat, Most Current Temp Pulse Resp BP Pulse Ox 98.6 F 123 18 133/90 93 12/09/16 15:30 12/09/16 15:50 12/09/16 15:50 12/09/16 15:50 12/09/16 15:50 - Lungs Lungs: Clear Ascult./Percussion - Airway Airway: Non-obstructed - Cardiovascular Regular Rate - Mental Status Mental Status: Alert & Oriented, Answers Appropriately - Pain Pain Scale: 0 Pain Scale used: Numeric (1 - 10) - Nausea Vomiting Nausea Vomiting: Not Present - Hydration Hydration: Ice chips, Has not voided - Discharge PostOp Status: Transfer Patient to floor
[2016-12-09] MEDS: *HR* Enoxaparin 40 MG/0.4 ML SYRINGE SQ SCH (17:13)
--- NOTE | 2016-12-09 17:16 | Internal Med Progress Note ---
Date of Encounter: 12/09/16 Time of Encounter: 11:00 - Assessment and plan (1) Acute abdominal pain Current Visit: Yes Status: Acute Assessment and plan: -Secondary to pancreatic mass and obstructive jaundice. -Status post percutaneous cholecystostomy. -Planned ERCP and biliary stent placement. -Continue supportive care and pain control. -Awaiting biopsies. -GI following and ppreciate recommendations. (2) Obstructive jaundice due to malignant neoplasm Current Visit: Yes Status: Acute Assessment and plan: -Awaiting pathology results; may need referral or transfer to [facility] based on his pathology results. (3) Pancreatic mass Current Visit: Yes Status: Acute Assessment and plan: -Suspected malignancy. -GI following and recommendations as above. (4) Tobacco dependence Current Visit: Yes Status: Chronic Assessment and plan: -Nicotine replacement offered (5) DVT prophylaxis Current Visit: Yes Status: Acute Assessment and plan: -Subcutaneous Lovenox - Subjective Interval history: Patient with no issues or complaints this morning and requesting to go home soon. - Constitutional Vitals: Temp Pulse Resp BP Pulse Ox 98.2 F 109 18 139/90 92 12/09/16 16:00 12/09/16 16:10 12/09/16 16:10 12/09/16 16:10 12/09/16 16:10 General appearance: Present: A&O X 3, no acute distress, answers questions appropriately - Respiratory Respiratory exam: Present: CTAB. Absent: accessory muscle use, rales, rhonchi, wheezes - Cardiovascular Cardiovascular exam: Present: RRR, +S1, +S2. Absent: diastolic murmur, gallop, rubs, systolic murmur Internal Medicine: Result - Labs CBC & Chem 7: 12/09/16 09:55 12/09/16 09:55 Labs: Short CBC 12/09/16 Range/Units 09:55 WBC 12.6 H (4.3-11.1) K/mcL Hgb 15.7 D (12.9-16.9) g/dL Hct 47.7 (37.5-50.1) % Plt Count 337 (140-400) K/mcL Neutrophils # 6.8 (1.6-8.9) K/mcL BMP 12/09/16 09:55 Sodium 139 Potassium 3.4 L Chloride 101 Carbon Dioxide 26 BUN 12 Creatinine 0.83 Glucose 106 H Calcium 10.1 - ABG Interpretation ABG results: PT/INR, D-dimer PT 12.1 Seconds (9.4-12.1) 12/05/16 06:23 - Impressions Impressions Cath/Invasive Procedure 12/09/16 00:00 IMPRESSION: Nonspecific ERCP images. Please refer to the procedure report for further details. D/ / Irwin Coreas / Irwin Coreas Interpreting Provider: Irwin Coreas Consult Discharge Plan - Plan Referrals: Alecia Espinoza, WINDOWS ARCHITECT [Primary Care Provider] -
[2016-12-09 17:24] VITALS: BP 138/87
--- NOTE | 2016-12-09 19:08 | Discharge Summary ---
Date of Encounter: 12/12/16 Time of Encounter: 11:00 - Discharge Diagnosis (1) Acute abdominal pain Priority: Primary Status: Acute (2) Obstructive jaundice due to malignant neoplasm Priority: Primary Status: Acute (3) Pancreatic mass Priority: Primary Status: Acute (4) Tobacco dependence Priority: Secondary Status: Chronic - Discharge Medications Prescriptions: OxyCODONE/APAP 5/325 [Percocet 5/325 MG] 1 each PO Q6HR PRN #12 tablet PRN Reason: Severe Pain Naproxen [Naprosyn] 500 mg PO BID PRN #20 tablet PRN Reason: Moderate Pain Home Medications: Albuterol Sulfate [Ventolin Hfa] 2 puff IH Q4H PRN 12/04/16 [History] Oxycodone HCl/Acetaminophen [Percocet 5-325 mg Tablet] 1 tab PO Q6H PRN [History] Naproxen [Naprosyn] 500 mg PO BID PRN #20 tablet 12/09/16 [Rx] OxyCODONE/APAP 5/325 [Percocet 5/325 MG] 1 each PO Q6HR PRN #12 tablet 12/09/16 [Rx] Allergies/Adverse Reactions: 3 Allergy/AdvReac Type Severity Reaction Status Date / Time aspirin [ASA] Allergy Vomiting Verified 12/04/16 10:38 IVP Dye Allergy Vomiting Uncoded 12/04/16 10:27 Date of admission: 12/04/16 15:46 Primary care physician: Alecia Espinoza CNP Consults: 12/04/16 15:54 Consult to Occupational Therapy [CONS] Routine Comment: Evaluate, develop and implement POC Reason for Consult: deconditioning Consult to Physical Therapy [CONS] Routine Comment: Evaluate, develop and implement POC Reason for Consult: deconditioning 12/07/16 13:11 Consult to Relay Technician [CONS] Routine Reason for SW Consult: troubles with transportation - Patient Status Disposition: Home, Self-Care Condition: Good - Discharge Instructions Follow Up With: Dalia Ibarra MD [Partnered Physician] - (web request - office will call with apoointment time.) Additional Instructions: Follow-up appointments: If there is not an appointment listed below, please call your physician and schedule a follow-up appointment. If you have congestive heart failure and your symptoms return, make an appointment with your physician. Medication List: Carry an up to date list of medications you are taking at all time. We have given you an updated medication list including any new medications that you have been prescribed. Please provide that list to your primary provider Symptoms: If your condition changes or you experience any of the following symptoms, notify your physician immediately: Unusual or worsening pain, fever, persistent nausea and vomiting, bleeding, increase in swelling (especially in your legs), sudden weight gain, extreme dizziness, chest pain, increased drainage or redness from a wound or incision. Go to the emergency department if you experience a problem with breathing. Weights: If you have a history of swelling or shortness of breath, weigh yourself daily and notify your physician if you have a weight gain of two or more pounds in one day or 5 or more pounds in a week. If you experience any of the warning signs for stroke: Sudden numbness or weakness of the face, arm or leg; especially on one side of the body, sudden confusion, trouble speaking or understanding, sudden trouble seeing in one or both eyes, sudden trouble walking, dizziness, loss of balance or coordination, sudden sever headache with no cause; Call 911 or go to the emergency room. Stroke is a medical emergency. Some risk factors for stroke: Age, cigarette smoking, diabetes, excessive alcohol consumption, family history , high blood pressure, overweight, physical inactivity, prior stroke, heart attack, diagnosis of carotid artery stenosis or other artery disease. If you smoke, STOP: Smoking or tobacco use significantly increases your risk of heart and lung disease. Your chance of disease greatly increases if you continue to smoke. For more information, call the [place] tobacco quit line for smoking cessation 5 QUIT-NOW ( ) Hospital course: Mr. Montana is a 55 year old male with known PMH of Asthma, chronic tobacco dependence, who recently diagnosed with pancreatic mass and obstructive jaundice and had ERCP in addition to Percutaneous cath. Patient will follow up with GI as an outpatient. - Time Spent with Patient Total time spent providing and/or coordinating discharge services: - Constitutional Vitals: Temp Pulse Resp BP Pulse Ox 97.8 F 103 18 138/87 93 12/09/16 17:15 12/09/16 17:15 12/09/16 17:15 12/09/16 17:15 12/09/16 17:15 General appearance: Present: A&O X 3, no acute distress, answers questions appropriately - Respiratory Respiratory exam: Present: CTAB. Absent: accessory muscle use, rales, rhonchi, wheezes - Cardiovascular Cardiovascular exam: Present: RRR, +S1, +S2. Absent: diastolic murmur, gallop, rubs, systolic murmur
[2016-12-09] MEDS ORDERED: Lidocaine -MPF 2% 5 ML VIAL INFILT ONE (20:47)
[2016-12-09] MEDS ORDERED: *HR* Propofol 500 MG/50 ML BOTTLE IVC ONE (20:47)
[2016-12-09] MEDS ORDERED: *HR* Rocuronium Bromide 50 MG/5 ML VIAL IVC ONE (20:47)
[2016-12-09] MEDS ORDERED: Ondansetron 4 MG/2 ML VIAL IVP ONE (20:47)
[2016-12-09] MEDS ORDERED: *HR* Phenylephrine 10 MG/ML VIAL IVC ONE (20:47)
[2016-12-09] MEDS ORDERED: *HR* Succinylcholine 200 MG/10 ML VIAL IVP ONE (20:47)
[2016-12-09] MEDS ORDERED: *HR* Propofol 200 MG/20 ML VIAL IVP ONE (20:47)
== END 2016-12-09 20:48 | disposition home or self-care (01) | DRG 264 ==
LOC: SAMDAY 10:00 → 3ANU 14:55 → SUATTDRO 15:46
PROVIDERS: ADMIT Family Medicine; ATTEND Hospitalist
PROC: ENDOEUS (2016-12-04 11:45)